=== PATIENT | female | born 1955 | race Asian ===

== ENCOUNTER 2017-08-31 19:04 | Emergency (ER) | payer OTHER ==
[2017-08-31 19:23] VITALS: BP 135/94
--- NOTE | 2017-08-31 19:28 | UC ---
Respiratory Complaint HPI - HPI Summary HPI Summary: Pt presents with ongoing dry cough. She tells me that about 1 week ago she was diagnosed with the flu due to fatigue, fever, and body aches - she was told that she was outside the window of treatment for tamiflu and advised to rest, drink fluids, and try OTC medications. Today she is complaining of a persistent dry cough for the last 5 days. Is keeping her up at night and seems to be getting worse. She has not been taking anything OTC. Denies fever, chills, SOB, chest pain, abdominal pain, n/v/d/c. - History of Current Complaint Chief Complaint: UCRespiratory Stated Complaint: COUGH,FATIGUE Time Seen by Provider: 08/31/17 19:27 Hx Obtained From: Patient Hx Last Menstrual Period: post Onset/Duration: Gradual Onset Timing: Constant Severity Initially: Mild Severity Currently: Mild Pain Intensity: 3 Pain Scale Used: 0-10 Numeric Character: Cough: Nonproductive - Allergies/Home Medications Allergies/Adverse Reactions: Allergies Allergy/AdvReac Type Severity Reaction Status Date / Time ciprofloxacin Allergy leg Verified 08/31/17 19:16 swelling, itching PMH/Surg Hx/FS Hx/Imm Hx Endocrine History: Thyroid Disease, Dyslipidemia Cardiovascular History: Hypertension GI/ History: Gastroesophageal Reflux - Surgical History Surgical History: Yes Surgery Procedure, Year, and Place: hysterectomy. right lumpectomy 2002 - Social History Alcohol Use: None Substance Use Type: None Smoking Status (MU): Never Smoked Tobacco Review of Systems Constitutional: Negative Skin: Negative Eyes: Negative ENT: Negative Respiratory: Cough Cardiovascular: Negative Gastrointestinal: Negative Neurological: Negative Psychological: Negative All Other Systems Reviewed And Are Negative: Yes Physical Exam - Summary Physical Exam Summary: GENERAL: NAD. WDWN. No pain distress. SKIN: No rashes, sores, ulcers, masses, lesions. No clubbing or cyanosis. HEENT: Head: AT/NC Eyes: Conjunctiva clear without inflammation or discharge. Ears: Hearing grossly normal. TMs intact, no bulging, erythema, or edema. Nose: Nasal mucosa pink and moist. NTTP maxillary and frontal sinus. Throat: Posterior oropharynx without exudates, erythema, or tonsillar enlargement. Uvula midline. NECK: Supple. Nontender. No lymphadenopathy. CHEST: Mild wheezing throughout. CTAB. No r/r. No accessory muscle use. Breathing comfortably and in no distress. CV: RRR. Without m/r/g. Pulses intact. Brisk cap refill. NEURO: Alert. CN II-XII grossly intact. PSYCH: Age appropriate behavior. Triage Information Reviewed: Yes Vital Signs: Initial Vital Signs Temp 98.4 F 08/31/17 19:19 Pulse 72 08/31/17 19:19 Resp 16 08/31/17 19:19 BP 135/94 08/31/17 19:19 Pulse Ox 98 08/31/17 19:19 Diagnostic Evaluation - Laboratory O2 Sat by Pulse Oximetry: 98 Respiratory Course/Dx - Course Course Of Treatment: CXR: IMPRESSION: NO ACTIVE DISEASE OR INTERVAL CHANGE. Suspect bronchitis. Will treat with albuterol and cough syrup at night. - Differential Dx/Diagnosis Provider Diagnoses: Bronchitis Discharge - Discharge Plan Condition: Stable Disposition: HOME Prescriptions: Albuterol HFA INHALER* [Ventolin HFA Inhaler*] 1 - 2 puff INH Q6H PRN #1 mdi PRN Reason: Sob/Wheezing Codeine Phosphate/Guaifenesin [Guaifen-Codeine 100-10 mg/5 ml] 5 ml PO BEDTIME PRN #35 ml MDD 5mL PRN Reason: Cough Patient Education Materials: Acute Bronchitis (ED) Referrals: Ena Krueger MD [Primary Care Provider] - Additional Instructions: If you develop a fever, shortness of breath, chest pain, new or worsening symptoms - please call your PCP or go to the ED. Your blood pressure was high at todays visit. Please see your primary provider within 4 weeks for recheck and re-evaluation.
--- NOTE | 2017-08-31 20:11 | RAD ---
INDICATION: Cough COMPARISON: Chest x-ray July 28, 2009 TECHNIQUE: PA and lateral dual-energy views were obtained. FINDINGS: Bones/Soft Tissues: There are no acute bony findings. Cardiomediastinal: The cardiomediastinal silhouette is unchanged with prominence of the ascending thoracic aorta. Lungs: There are no infiltrates. Pleura: There are no pleural effusions. Other: None IMPRESSION: NO ACTIVE DISEASE OR INTERVAL CHANGE
== END 2017-08-31 20:15 | disposition home or self-care (01) ==
LOC: UCEAST 19:04
DX: J40 Bronchitis, not specified as acute or chronic (principal); E07.9 Disorder of thyroid, unspecified; E78.5 Hyperlipidemia, unspecified; I10 Essential (primary) hypertension; K21.9 Gastro-esophageal reflux disease without esophagitis; Z88.1 Allergy status to other antibiotic agents
CPT/HCPCS: 71046; 99212; G0463

== ENCOUNTER 2017-10-15 11:05 | Emergency (ER) | payer OTHER ==
[2017-10-15 11:35] VITALS: BP 116/77
--- NOTE | 2017-10-15 12:02 | UC ---
Skin Complaint HPI - HPI Summary HPI Summary: patient was traveling over past 2 weeks, 3 days ago she experienced intensely itchy rash to posterior neck, now spreading down arms and now on buttocks and legs. itch is intense all day and night. OTC "bug bite" meds not helping - History of Current Complaint Chief Complaint: UCRash Time Seen by Provider: 10/15/17 11:44 Stated Complaint: RASH Hx Obtained From: Patient Hx Last Menstrual Period: post ?: No Onset/Duration: Sudden Onset Timing: Constant Onset Severity: Moderate Current Severity: Severe Pain Intensity: 0 Location: Diffuse Character: Pruritus, Redness Aggravating Factor(s): Nothing Alleviating Factor(s): Nothing Associated Signs & Symptoms: Positive: Negative - Allergy/Home Medications Allergies/Adverse Reactions: Allergies Allergy/AdvReac Type Severity Reaction Status Date / Time ciprofloxacin Allergy leg Verified 10/15/17 11:31 swelling, itching Review of Systems Constitutional: Negative Skin: Rash Eyes: Negative Respiratory: Negative Cardiovascular: Negative Neurovascular: Negative Musculoskeletal: Negative Neurological: Negative Psychological: Negative Is Patient Immunocompromised?: No All Other Systems Reviewed And Are Negative: Yes PMH/Surg Hx/FS Hx/Imm Hx Previously Healthy: Yes Endocrine History: Hypothyroidism Cardiovascular History: Hypertension Respiratory History: Asthma - Surgical History Surgical History: Yes Surgery Procedure, Year, and Place: hysterectomy. right lumpectomy 2002 - Family History Known Family History: Positive: None - Social History Occupation: Employed Full-time Lives: With Family Alcohol Use: Occasionally Substance Use Type: None Smoking Status (MU): Never Smoked Tobacco Physical Exam Triage Information Reviewed: Yes Appearance: Well-Appearing, No Pain Distress, Well-Nourished Vital Signs: Initial Vital Signs Temp 98.6 F 10/15/17 11:28 Pulse 75 10/15/17 11:28 Resp 12 10/15/17 11:28 BP 116/77 10/15/17 11:28 Pulse Ox 100 10/15/17 11:28 Vital Signs Reviewed: Yes Eye Exam: Normal Eyes: Positive: Conjunctiva Clear Respiratory Exam: Normal Respiratory: Positive: Lungs clear Cardiovascular Exam: Normal Cardiovascular: Positive: RRR, No Murmur Musculoskeletal Exam: Normal Neurological Exam: Normal Psychological Exam: Normal Skin: Positive: rashes - scattered, small, raised, erythemic, pruritic rash with some lesions in linear pattern and scabbed Course/Dx - Differential Diagnoses - Skin Complaint Differential Diagnoses: Allergic Reaction, Contact Dermatitis, Scabies - Diagnoses Provider Diagnoses: scabies Discharge - Sign-Out/Discharge Documenting (check all that apply): Discharge - Discharge Plan Condition: Good Disposition: HOME Prescriptions: Fluocinonide 0.05% CM (NF) [Lidex 0.05% CREAM (NF)] 1 applic TOPICAL TID PRN #1 tube PRN Reason: Itching Permethrin [Elimite] 5 % EX ONCE #1 cre Patient Education Materials: Scabies (ED) Referrals: Ena Krueger MD [Primary Care Provider] - 1 Week (if no better) Additional Instructions: use benadryl 50mg by mouth (over the counter) every 6 hours as needed for itching Benadryl will make you drowsy so avoid driving return if problems worsen at any time - Billing Disposition and Condition Condition: GOOD Disposition: HOME
== END 2017-10-15 12:16 | disposition home or self-care (01) ==
LOC: UCEAST 11:05
DX: B86 Scabies (principal); Z88.1 Allergy status to other antibiotic agents
CPT/HCPCS: 99212; G0463

== ENCOUNTER 2017-10-17 01:24 | Emergency (ER) | payer OTHER ==
--- NOTE | 2017-10-17 01:49 | ED ---
Skin Complaint - HPI Summary HPI Summary: 62-year-old female presents with rash since . She states she's been traveling and staying in many hotels and she was concerned that she has scabies. She states that on she went to urgent care and was given the medication for scabies. She states she placed permerthrin on her body on but the rash continues to spread. She denies any spreading redness. She states the rash is very itchy. She states he has been placing steroid on the area and the itching continues. She denies any chest pain cough or recent illness. She has never had this rash before. She has had scabies before and does not believe it looked like this. She denies any history of MRSA. She denies any shortness of breath. She denies any difficulty swallowing. She denies any new soaps. She denies any environmental exposure. She denies any history of allergies. - History of Current Complaint Chief Complaint: EDRashSkinAbscess Time Seen by Provider: 10/17/17 01:35 Stated Complaint: ALLERGIC REACTION Hx Last Menstrual Period: post Pain Intensity: 0 - Allergy/Home Medications Allergies/Adverse Reactions: Allergies Allergy/AdvReac Type Severity Reaction Status Date / Time ciprofloxacin Allergy leg Verified 10/15/17 11:31 swelling, itching PMH/Surg Hx/FS Hx/Imm Hx Endocrine/Hematology History: Reports: Hx Thyroid Disease Cardiovascular History: Reports: Hx Hypertension Respiratory History: Reports: Hx Asthma - SLIGHT Musculoskeletal History: Denies: Hx Osteoporosis - Cancer History Hx Chemotherapy: No Hx Radiation Therapy: Yes - BREAST - Surgical History Surgery Procedure, Year, and Place: hysterectomy. right lumpectomy 2002 Infectious Disease History: No Infectious Disease History: Denies: Traveled Outside the [place] in Last 30 Days - Family History Known Family History: Positive: None - Social History Alcohol Use: Occasionally Substance Use Type: Reports: None Hx Tobacco Use: No Smoking Status (MU): Never Smoked Tobacco Review of Systems Negative: Fever Negative: Chest Pain Negative: Shortness Of Breath Positive: Rash All Other Systems Reviewed And Are Negative: Yes Physical Exam Triage Information Reviewed: Yes Vital Signs On Initial Exam: Initial Vitals Temp Pulse Resp BP Pulse Ox 98.4 F 77 16 156/84 99 10/17/17 01:28 10/17/17 01:28 10/17/17 01:28 10/17/17 01:28 10/17/17 01:28 Vital Signs Reviewed: Yes Appearance: Positive: Well-Appearing Skin: Positive: Other - erythematous macules with excoriation across arms, neck , face that warm to touch, no streaking Head/Face: Positive: Normal Head/Face Inspection Eyes: Positive: Normal, Conjunctiva Clear Respiratory/Lung Sounds: Positive: Clear to Auscultation, Breath Sounds Present Cardiovascular: Positive: Normal, RRR Musculoskeletal: Positive: Normal Neurological: Positive: Normal Psychiatric: Positive: Normal Diagnostics - Vital Signs Vital Signs Temp Pulse Resp BP Pulse Ox 10/17/17 01:28 98.4 F 77 16 156/84 99 - Laboratory Lab Statement: Any lab studies that have been ordered have been reviewed, and results considered in the medical decision making process. Course/Dx - Course Course Of Treatment: 62-year-old female presents with rash since . She states she's been traveling and staying in many hotels and she was concerned that she has scabies. She states that on she went to urgent care and was given the medication for scabies. She states she placed permerthrin on her body on but the rash continues to spread. She denies any spreading redness. She states the rash is very itchy. She states he has been placing steroid on the area and the itching continues. She denies any chest pain cough or recent illness. She has never had this rash before. She has had scabies before and does not believe it looked like this. She denies any history of MRSA. She denies any shortness of breath. She denies any difficulty swallowing. She denies any new soaps. She denies any environmental exposure. She denies any history of allergies. on exam has erythematous macules with excoriation that are warm to touch. appear more like bug bites. none of the wounds appear cellulitic but with scratching could easily become cellulitic so will start on keflex. does not necessarily look like scabies. will treat as potential allergic reaction with steriod too. will have follow up with primary. patient understand and agrees with plan. - Differential Diagnoses - Skin Complaint Differential Diagnoses: Cellulitis, Contact Dermatitis, Scabies, Urticaria, Viral Exanthem - Diagnoses Provider Diagnoses: Rash Discharge - Sign-Out/Discharge Documenting (check all that apply): Discharge - Discharge Plan Condition: Good Disposition: HOME Prescriptions: Cephalexin CAP* [Keflex CAP*] 500 mg PO BID #19 cap methylPREDNISolone [Medrol Dosepak 4 MG*] 4 mg PO .SEE BRENDA INSTRUCTION #1 packet Patient Education Materials: Acute Rash (ED) Referrals: Ena Krueger MD [Primary Care Provider] - Additional Instructions: Will try a steroid, follow directions on package take antibiotic twice a day for 10 days Continue Benadryl once every 6 hours as need for itching Continue placing topical steroid on area three times a day follow up with primary within 5 days Return to ED if develop any new or worsening symptoms - Billing Disposition and Condition Condition: GOOD Disposition: HOME
[2017-10-17] MEDS ORDERED: predniSONE TAB* 20 MG PO ONE (01:50)
[2017-10-17] MEDS ORDERED: Cephalexin CAP* 500 MG PO ONE (02:04)
[2017-10-17 02:49] VITALS: BP 142/88
== END 2017-10-17 02:48 | disposition home or self-care (01) ==
LOC: ED 01:24
DX: R21 Rash and other nonspecific skin eruption (principal); E07.9 Disorder of thyroid, unspecified; I10 Essential (primary) hypertension; J45.909 Unspecified asthma, uncomplicated; Z88.1 Allergy status to other antibiotic agents
CPT/HCPCS: 99282; A9270-GY; J7512